=== PATIENT | female | born 1935 | race Caucasian/White ===

== ENCOUNTER 2018-09-03 11:44 | Outpatient (CLI) | payer MEDICARE | END 2018-09-03 23:59 | disposition home or self-care (01) | LOC: CFH 11:44 | PROVIDERS: ATTEND Family Medicine | DX: Z02.9 Encounter for administrative examinations, unspecified (principal) ==

== ENCOUNTER → 2018-09-14 | Outpatient (CLI) | payer MEDICARE | END | disposition home or self-care (01) | LOC: CFH 15:49 | PROVIDERS: ATTEND Ophthalmology | DX: I65.23 Occlusion and stenosis of bilateral carotid arteries (principal) | CPT/HCPCS: 93880 ==